=== PATIENT | male | born 1965 | race African-American/Black ===

== ENCOUNTER 2022-07-08 08:19 | Outpatient (CLI) | payer OTHER | END 2022-07-08 08:20 | disposition home or self-care (01) | LOC: CSHWCC 08:19 | PROVIDERS: ATTEND Preventive Medicine Undersea and Hyperbaric Medicine | DX: T81.89XD Other complications of procedures, not elsewhere classified, subsequent encounter (principal) | CPT/HCPCS: 97605; 99212; G0463 ==

== ENCOUNTER 2022-07-15 10:04 | Outpatient (CLI) | payer OTHER | END 2022-07-15 10:05 | disposition home or self-care (01) | LOC: CSHWCC 10:04 | PROVIDERS: ATTEND Nurse Practitioner Family | DX: E11.622 Type 2 diabetes mellitus with other skin ulcer (principal); L97.828 Non-pressure chronic ulcer of other part of left lower leg with other specified severity; Z89.412 Acquired absence of left great toe; Z89.422 Acquired absence of other left toe(s) | CPT/HCPCS: 97605 ==

== ENCOUNTER 2022-07-22 09:33 | Outpatient (CLI) | payer OTHER | END 2022-07-22 09:34 | disposition home or self-care (01) | LOC: CSHWCC 09:33 | PROVIDERS: ATTEND Preventive Medicine Undersea and Hyperbaric Medicine | DX: E11.622 Type 2 diabetes mellitus with other skin ulcer (principal); L97.828 Non-pressure chronic ulcer of other part of left lower leg with other specified severity ==

== ENCOUNTER 2022-07-26 09:55 | Outpatient (CLI) | payer OTHER | END 2022-07-26 09:56 | disposition home or self-care (01) | LOC: CSHWCC 09:55 | PROVIDERS: ATTEND Preventive Medicine Undersea and Hyperbaric Medicine | DX: E11.622 Type 2 diabetes mellitus with other skin ulcer (principal); L97.828 Non-pressure chronic ulcer of other part of left lower leg with other specified severity | CPT/HCPCS: 11042; 97605 ==

== ENCOUNTER 2022-08-05 09:08 | Outpatient (CLI) | payer OTHER | END 2022-08-05 09:09 | disposition home or self-care (01) | LOC: CSHWCC 09:08 | PROVIDERS: ATTEND Preventive Medicine Undersea and Hyperbaric Medicine | DX: L89.95 Pressure ulcer of unspecified site, unstageable (principal); E11.622 Type 2 diabetes mellitus with other skin ulcer; L97.828 Non-pressure chronic ulcer of other part of left lower leg with other specified severity | CPT/HCPCS: 99212; G0463 ==

== ENCOUNTER 2022-08-09 15:10 | Outpatient (CLI) | payer OTHER | END 2022-08-09 15:11 | disposition home or self-care (01) | LOC: CSHWCC 15:10 | PROVIDERS: ATTEND Preventive Medicine Undersea and Hyperbaric Medicine | DX: E11.622 Type 2 diabetes mellitus with other skin ulcer (principal); L97.828 Non-pressure chronic ulcer of other part of left lower leg with other specified severity; E11.621 Type 2 diabetes mellitus with foot ulcer; L97.529 Non-pressure chronic ulcer of other part of left foot with unspecified severity | CPT/HCPCS: 11042; 97605 ==

== ENCOUNTER 2022-08-12 10:42 | Outpatient (CLI) | payer OTHER | END 2022-08-12 10:43 | disposition home or self-care (01) | LOC: CSHWCC 10:42 | PROVIDERS: ATTEND Preventive Medicine Undersea and Hyperbaric Medicine | DX: E11.621 Type 2 diabetes mellitus with foot ulcer (principal); L97.529 Non-pressure chronic ulcer of other part of left foot with unspecified severity; Z89.432 Acquired absence of left foot | CPT/HCPCS: 97605 ==

== ENCOUNTER 2022-08-16 11:24 | Outpatient (CLI) | payer OTHER | END 2022-08-16 11:25 | disposition home or self-care (01) | LOC: CSHWCC 11:24 | PROVIDERS: ATTEND Preventive Medicine Undersea and Hyperbaric Medicine | DX: E11.621 Type 2 diabetes mellitus with foot ulcer (principal); L97.429 Non-pressure chronic ulcer of left heel and midfoot with unspecified severity; L97.529 Non-pressure chronic ulcer of other part of left foot with unspecified severity | CPT/HCPCS: 11042; 97605 ==

== ENCOUNTER 2022-08-19 10:11 | Outpatient (CLI) | payer OTHER | END 2022-08-19 10:12 | disposition home or self-care (01) | LOC: CSHWCC 10:11 | PROVIDERS: ATTEND Nurse Practitioner Family | DX: E11.621 Type 2 diabetes mellitus with foot ulcer (principal); L97.529 Non-pressure chronic ulcer of other part of left foot with unspecified severity; L97.429 Non-pressure chronic ulcer of left heel and midfoot with unspecified severity | CPT/HCPCS: 97605 ==

== ENCOUNTER 2022-08-23 14:05 | Outpatient (CLI) | payer OTHER | END 2022-08-23 14:06 | disposition home or self-care (01) | LOC: CSHWCC 14:05 | PROVIDERS: ATTEND Nurse Practitioner Family | DX: E11.621 Type 2 diabetes mellitus with foot ulcer (principal); L97.529 Non-pressure chronic ulcer of other part of left foot with unspecified severity; L97.429 Non-pressure chronic ulcer of left heel and midfoot with unspecified severity; Z89.432 Acquired absence of left foot ==

== ENCOUNTER 2022-08-26 08:58 | Outpatient (CLI) | payer OTHER | END 2022-08-26 08:59 | disposition home or self-care (01) | LOC: CSHWCC 08:58 | PROVIDERS: ATTEND Nurse Practitioner Family | DX: E11.621 Type 2 diabetes mellitus with foot ulcer (principal); L97.529 Non-pressure chronic ulcer of other part of left foot with unspecified severity; L97.429 Non-pressure chronic ulcer of left heel and midfoot with unspecified severity | CPT/HCPCS: 87070; 87077; 87186; 87205; 99213; G0463 ==

== ENCOUNTER 2022-09-02 10:41 | Outpatient (CLI) | payer OTHER | END 2022-09-02 10:42 | disposition home or self-care (01) | LOC: CSHWCC 10:41 | PROVIDERS: ATTEND Nurse Practitioner Family | DX: E11.621 Type 2 diabetes mellitus with foot ulcer (principal); L97.529 Non-pressure chronic ulcer of other part of left foot with unspecified severity; L97.429 Non-pressure chronic ulcer of left heel and midfoot with unspecified severity ==

== ENCOUNTER 2022-09-09 10:52 | Outpatient (CLI) | payer OTHER | END 2022-09-09 10:53 | disposition home or self-care (01) | LOC: CSHWCC 10:52 | PROVIDERS: ATTEND Nurse Practitioner Family | DX: E11.621 Type 2 diabetes mellitus with foot ulcer (principal); L97.529 Non-pressure chronic ulcer of other part of left foot with unspecified severity; L97.429 Non-pressure chronic ulcer of left heel and midfoot with unspecified severity | CPT/HCPCS: 97605 ==

== ENCOUNTER 2022-09-13 09:25 | Outpatient (CLI) | payer OTHER | END 2022-09-13 09:26 | disposition home or self-care (01) | LOC: CSHWCC 09:25 | PROVIDERS: ATTEND Nurse Practitioner Family | DX: E11.621 Type 2 diabetes mellitus with foot ulcer (principal); L97.529 Non-pressure chronic ulcer of other part of left foot with unspecified severity; L97.429 Non-pressure chronic ulcer of left heel and midfoot with unspecified severity | CPT/HCPCS: 99213; G0463 ==

== ENCOUNTER 2022-09-16 10:37 | Outpatient (CLI) | payer OTHER | END 2022-09-16 10:38 | disposition home or self-care (01) | LOC: CSHWCC 10:37 | PROVIDERS: ATTEND Nurse Practitioner Family | DX: E11.621 Type 2 diabetes mellitus with foot ulcer (principal); L97.529 Non-pressure chronic ulcer of other part of left foot with unspecified severity; L97.429 Non-pressure chronic ulcer of left heel and midfoot with unspecified severity | CPT/HCPCS: 99213; G0463 ==

== ENCOUNTER 2022-09-19 08:49 | Outpatient (CLI) | payer OTHER | END 2022-09-19 08:50 | disposition home or self-care (01) | LOC: CSHWCC 08:49 | PROVIDERS: ATTEND Nurse Practitioner Family | DX: E11.621 Type 2 diabetes mellitus with foot ulcer (principal); L97.529 Non-pressure chronic ulcer of other part of left foot with unspecified severity; L97.429 Non-pressure chronic ulcer of left heel and midfoot with unspecified severity | CPT/HCPCS: 99213; G0463 ==

== ENCOUNTER 2022-09-21 08:47 | Outpatient (CLI) | payer OTHER | END 2022-09-21 08:48 | disposition home or self-care (01) | LOC: CSHWCC 08:47 | PROVIDERS: ATTEND Nurse Practitioner Family | DX: E11.621 Type 2 diabetes mellitus with foot ulcer (principal); L97.529 Non-pressure chronic ulcer of other part of left foot with unspecified severity; L97.429 Non-pressure chronic ulcer of left heel and midfoot with unspecified severity ==

== ENCOUNTER 2022-09-26 11:08 | Outpatient (CLI) | payer OTHER | END 2022-09-26 11:09 | disposition home or self-care (01) | LOC: CSHWCC 11:08 | PROVIDERS: ATTEND Nurse Practitioner Family | DX: E11.621 Type 2 diabetes mellitus with foot ulcer (principal); L97.529 Non-pressure chronic ulcer of other part of left foot with unspecified severity; L97.429 Non-pressure chronic ulcer of left heel and midfoot with unspecified severity; Z89.432 Acquired absence of left foot | CPT/HCPCS: 97605 ==

== ENCOUNTER 2022-09-29 09:52 | Outpatient (CLI) | payer OTHER | END 2022-09-29 09:53 | disposition home or self-care (01) | LOC: CSHWCC 09:52 | PROVIDERS: ATTEND Nurse Practitioner Family | DX: T81.89XD Other complications of procedures, not elsewhere classified, subsequent encounter (principal); E11.621 Type 2 diabetes mellitus with foot ulcer; L97.529 Non-pressure chronic ulcer of other part of left foot with unspecified severity; L97.429 Non-pressure chronic ulcer of left heel and midfoot with unspecified severity | CPT/HCPCS: 11042; 97605 ==

== ENCOUNTER 2022-10-03 09:58 | Outpatient (CLI) | payer OTHER | END 2022-10-03 09:59 | disposition home or self-care (01) | LOC: CSHWCC 09:58 | PROVIDERS: ATTEND Nurse Practitioner Family | DX: E11.621 Type 2 diabetes mellitus with foot ulcer (principal); L97.529 Non-pressure chronic ulcer of other part of left foot with unspecified severity; L97.429 Non-pressure chronic ulcer of left heel and midfoot with unspecified severity; Z89.432 Acquired absence of left foot | CPT/HCPCS: 97605 ==

== ENCOUNTER 2022-10-06 09:13 | Outpatient (CLI) | payer OTHER | END 2022-10-06 09:14 | disposition home or self-care (01) | LOC: CSHWCC 09:13 | PROVIDERS: ATTEND Nurse Practitioner Family | DX: E11.621 Type 2 diabetes mellitus with foot ulcer (principal); L97.529 Non-pressure chronic ulcer of other part of left foot with unspecified severity; L97.429 Non-pressure chronic ulcer of left heel and midfoot with unspecified severity ==

== ENCOUNTER 2022-10-10 10:14 | Outpatient (CLI) | payer OTHER | END 2022-10-10 10:15 | disposition home or self-care (01) | LOC: CSHWCC 10:14 | PROVIDERS: ATTEND Nurse Practitioner Family | DX: E11.621 Type 2 diabetes mellitus with foot ulcer (principal); L97.529 Non-pressure chronic ulcer of other part of left foot with unspecified severity; L97.429 Non-pressure chronic ulcer of left heel and midfoot with unspecified severity; Z89.432 Acquired absence of left foot ==

== ENCOUNTER 2022-10-13 09:02 | Outpatient (CLI) | payer OTHER | END 2022-10-13 09:03 | disposition home or self-care (01) | LOC: CSHWCC 09:02 | PROVIDERS: ATTEND Nurse Practitioner Family | DX: E11.621 Type 2 diabetes mellitus with foot ulcer (principal); L97.429 Non-pressure chronic ulcer of left heel and midfoot with unspecified severity; L97.529 Non-pressure chronic ulcer of other part of left foot with unspecified severity ==

== ENCOUNTER 2022-10-17 12:24 | Inpatient (IN) | payer OTHER ==
[2022-10-17 13:32] LABS: #Basophils 0.1 10x3/uL (0.0-0.2); #Monocytes 1.1 10x3/uL (0.0-1.1); #Neutrophils 10.5 10x3/uL (1.5-8.4); %Basophils 0.5 % (0.0-2.0); %Eosinophils 0.2 % (0.0-6.0); %Neutrophils 79.8 % (40.0-75.0); Hemoglobin 10.1 g/dL (13.5-17.5); Mean Corpuscular HGB CONC 30.7 g/dL (32.0-36.0); Mean Corpuscular Hemoglobin 24.8 pg (27.0-33.0); Mean Corpuscular Volume 80.6 fl (81.2-95.1); Mean Platelet Volume 10.1 fl (7.4-10.4); Platelet Count 515 10x3/uL (150-450); RBC Distribution Width 18.1 % (11.5-14.5); Red Blood Cell (RBC) Count 4.08 10x6/uL (4.32-5.72); White Blood Cell (WBC) Count 13.1 10x3/uL (3.5-10.5)
[2022-10-17 13:54] LABS: ALT (SGPT) 19 U/L (8-55); AST (SGOT) 17 U/L (5-34); Albumin 3.9 g/dL (3.5-5.0); Alkaline Phosphatase 91 U/L (40-110); Anion Gap 17 mmol/L (10-20); BUN (Urea Nitrogen) 34 mg/dL (8.4-25.7); Bilirubin, Total 0.3 mg/dL (0.2-1.2); Calc. Creatinine Clearance 0 mL/min (70-130); Calcium 9.6 mg/dL (7.8-10.44); Carbon Dioxide 20 mmol/L (22-29); Chloride 101 mmol/L (98-107); Estimated GFR 56; Globulin 4.4 g/dL (2.4-3.5); Glucose 101 mg/dL (70-105); Potassium 5.1 mmol/L (3.5-5.1); Protein, Total 8.3 g/dL (6.0-8.3); Sodium 133 mmol/L (136-145)
[2022-10-17] MEDS ORDERED: metroNIDAZOLE 500 MG/100 ML BAG ONE ×2 (15:06→21:02)
[2022-10-17] MEDS ORDERED: Cefepime 2 GM VIAL ONE (15:06)
[2022-10-17] MEDS ORDERED: VANCOMYCIN 2 GRAM/400 ML BAG 2 GM in Premix Bag 1 BAG IVPB SCH (15:15)
[2022-10-17] MEDS ORDERED: Ondansetron ODT 4 MG TAB PO PRN (16:16)
[2022-10-17] MEDS ORDERED: Acetaminophen 650 MG Suppository PR PRN (16:16)
[2022-10-17] MEDS ORDERED: Ondansetron PF 4 MG/2 ML Vial IVP PRN (16:16)
[2022-10-17] MEDS ORDERED: Acetaminophen 325 MG TAB PO PRN (16:16)
[2022-10-17] MEDS ORDERED: Dextrose 50% Abboject 50 ML SYRINGE SLOW IVP PRN (16:21)
[2022-10-17] MEDS ORDERED: Dextrose 5% in Water 1,000 ML IV PRN (16:21)
[2022-10-17] MEDS ORDERED: HumaLOG 300 UNITS/3 ML VIAL SC PRN ×2 (16:21)
[2022-10-17] MEDS ORDERED: Vancomycin 1 GM in Premix Bag 1 BAG IVPB SCH (16:30)
[2022-10-17 18:06] VITALS: BMI 30.4
[2022-10-17] MEDS: Sodium Chloride 0.9% 1,000 ML IV SCH (18:28)
[2022-10-17] MEDS ORDERED: FLU VACC QS2022-23(6MOS UP)/PF 60 MCG/0.5 ML SYRINGE IM ONE (18:30)
[2022-10-17 18:52] LABS: SARS-CoV-2 NAA Rapid Test Not Detected (NotDetected)
[2022-10-17] MEDS ORDERED: Heparin 5,000 UNITS/ML VIAL ONE (21:02)
[2022-10-17] MEDS: Heparin 5,000 UNITS/ML VIAL SC SCH (21:31)
[2022-10-17] MEDS: metroNIDAZOLE 500 MG in Premix Bag 1 BAG IVPB SCH (21:32)
[2022-10-18] MEDS ORDERED: metroNIDAZOLE 500 MG/100 ML BAG ONE ×2 (03:40→09:33)
[2022-10-18] MEDS: metroNIDAZOLE 500 MG in Premix Bag 1 BAG IVPB SCH ×3 (03:46→16:30)
[2022-10-18 04:12] LABS: #Basophils 0.1 10x3/uL (0.0-0.2); #Eosinphils 0.1 10x3/uL (0.0-0.5); #Monocytes 0.9 10x3/uL (0.0-1.1); #Neutrophils 8.8 10x3/uL (1.5-8.4); %Basophils 0.4 % (0.0-2.0); %Eosinophils 0.7 % (0.0-6.0); %Lymphocytes 11.9 % (18.0-47.0); %Monocytes 8.3 % (0.0-10.0); %Neutrophils 78.3 % (40.0-75.0); Mean Corpuscular HGB CONC 30.6 g/dL (32.0-36.0); Mean Corpuscular Hemoglobin 24.9 pg (27.0-33.0); Mean Corpuscular Volume 81.2 fl (81.2-95.1); Mean Platelet Volume 9.7 fl (7.4-10.4); Platelet Count 461 10x3/uL (150-450); RBC Distribution Width 17.7 % (11.5-14.5); Red Blood Cell (RBC) Count 3.62 10x6/uL (4.32-5.72); White Blood Cell (WBC) Count 11.3 10x3/uL (3.5-10.5)
[2022-10-18 04:18] LABS: Anion Gap 16 mmol/L (10-20); BUN (Urea Nitrogen) 23 mg/dL (8.4-25.7); Calc. Creatinine Clearance 107 mL/min (70-130); Calcium 9.3 mg/dL (7.8-10.44); Carbon Dioxide 18 mmol/L (22-29); Chloride 106 mmol/L (98-107); Estimated GFR 92; Glucose 133 mg/dL (70-105); Potassium 4.6 mmol/L (3.5-5.1); Sodium 135 mmol/L (136-145)
[2022-10-18] MEDS ORDERED: Cefepime 2 GM in Sodium Chloride 0.9% 100 ML IVPB SCH (06:00)
[2022-10-18] MEDS ORDERED: Cefepime 2 GM VIAL ONE (06:20)
[2022-10-18] MEDS ORDERED: VANCOMYCIN 1.25 GM/250 ML BAG 1.25 GM in Premix Bag 1 BAG IVPB SCH (06:30)
[2022-10-18] MEDS: Sodium Chloride 0.9% 1,000 ML IV SCH (06:31)
[2022-10-18] MEDS ORDERED: Aspirin 81 mg Enteric Coated Tablet PO SCH (09:00)
[2022-10-18] MEDS ORDERED: Aspirin Chewable 81 MG TAB ONE (09:32)
[2022-10-18] MEDS ORDERED: Heparin 5,000 UNITS/ML VIAL ONE (09:33)
[2022-10-18] MEDS: Heparin 5,000 UNITS/ML VIAL SC SCH (09:34)
[2022-10-18] MEDS ORDERED: Magnevist 469MG/ML 20 ML VIAL ONE (13:50)
[2022-10-18 17:36] VITALS: BP 127/61; TEMP 98.3
== END 2022-10-18 17:47 | disposition short-term general hospital (02) | DRG 638 ==
LOC: CSHERS 12:24 → CSHERHOLD 17:50 → CSHTELE 10-18 11:18
PROVIDERS: ADMIT Internal Medicine; ATTEND Family Medicine
DX: E11.69 Type 2 diabetes mellitus with other specified complication (principal); I13.0 Hypertensive heart and chronic kidney disease with heart failure and stage 1 through stage 4 chronic kidney disease, or unspecified chronic kidney disease; I50.32 Chronic diastolic (congestive) heart failure; M86.8X7 Other osteomyelitis, ankle and foot; E11.621 Type 2 diabetes mellitus with foot ulcer; N17.9 Acute kidney failure, unspecified; E78.5 Hyperlipidemia, unspecified; I25.10 Atherosclerotic heart disease of native coronary artery without angina pectoris; E11.51 Type 2 diabetes mellitus with diabetic peripheral angiopathy without gangrene; E11.40 Type 2 diabetes mellitus with diabetic neuropathy, unspecified; E78.00 Pure hypercholesterolemia, unspecified; N18.2 Chronic kidney disease, stage 2 (mild); E11.22 Type 2 diabetes mellitus with diabetic chronic kidney disease; M10.9 Gout, unspecified; Z20.822 Contact with and (suspected) exposure to COVID-19; L97.529 Non-pressure chronic ulcer of other part of left foot with unspecified severity; N18.30 Chronic kidney disease, stage 3 unspecified; Z79.4 Long term (current) use of insulin; Z79.82 Long term (current) use of aspirin; Z79.84 Long term (current) use of oral hypoglycemic drugs; Z89.511 Acquired absence of right leg below knee; Z79.899 Other long term (current) drug therapy; I25.2 Old myocardial infarction
CPT/HCPCS: 36415; 36416; 80048; 80053; 83605; 85025; 86140; 87040; 87070; 87077; 87205; 96374; 96375; 97139; A9579; J0692; J1644; J3370; J3490; J7030; J7050; U0002

== ENCOUNTER 2022-10-27 09:52 | Outpatient (CLI) | payer OTHER | END 2022-10-27 09:53 | disposition home or self-care (01) | LOC: CSHWCC 09:52 | PROVIDERS: ATTEND Nurse Practitioner Family | DX: E11.621 Type 2 diabetes mellitus with foot ulcer (principal); L97.529 Non-pressure chronic ulcer of other part of left foot with unspecified severity; L97.429 Non-pressure chronic ulcer of left heel and midfoot with unspecified severity ==

== ENCOUNTER 2022-11-01 11:18 | Outpatient (CLI) | payer OTHER | END 2022-11-01 11:19 | disposition home or self-care (01) | LOC: CSHWCC 11:18 | PROVIDERS: ATTEND Nurse Practitioner Family | DX: T81.89XD Other complications of procedures, not elsewhere classified, subsequent encounter (principal) | CPT/HCPCS: 97605 ==

== ENCOUNTER 2022-11-08 15:04 | Outpatient (CLI) | payer OTHER | END 2022-11-08 15:05 | disposition home or self-care (01) | LOC: CSHWCC 15:04 | PROVIDERS: ATTEND Nurse Practitioner Family | DX: T81.89XD Other complications of procedures, not elsewhere classified, subsequent encounter (principal) | CPT/HCPCS: 99212; G0463 ==

== ENCOUNTER 2022-11-11 10:10 | Outpatient (CLI) | payer OTHER | END 2022-11-11 10:11 | disposition home or self-care (01) | LOC: CSHWCC 10:10 | PROVIDERS: ATTEND Nurse Practitioner Family | DX: T81.89XD Other complications of procedures, not elsewhere classified, subsequent encounter (principal) | CPT/HCPCS: 97605; 99212; G0463 ==

== ENCOUNTER 2022-11-15 10:41 | Outpatient (CLI) | payer OTHER | END 2022-11-15 10:42 | disposition home or self-care (01) | LOC: CSHWCC 10:41 | PROVIDERS: ATTEND Nurse Practitioner Family | DX: T81.89XD Other complications of procedures, not elsewhere classified, subsequent encounter (principal) | CPT/HCPCS: 11042; 97605; 99212; G0463 ==

== ENCOUNTER 2022-11-18 11:10 | Outpatient (CLI) | payer OTHER | END 2022-11-18 11:11 | disposition home or self-care (01) | LOC: CSHWCC 11:10 | PROVIDERS: ATTEND Nurse Practitioner Family | DX: T81.89XD Other complications of procedures, not elsewhere classified, subsequent encounter (principal) | CPT/HCPCS: 97605 ==

== ENCOUNTER 2022-11-22 12:59 | Outpatient (CLI) | payer OTHER | END 2022-11-22 13:00 | disposition home or self-care (01) | LOC: CSHWCC 12:59 | PROVIDERS: ATTEND Nurse Practitioner Family | DX: T81.89XD Other complications of procedures, not elsewhere classified, subsequent encounter (principal) | CPT/HCPCS: 97605 ==

== ENCOUNTER 2022-12-12 12:58 | Outpatient (CLI) | payer OTHER | END 2022-12-12 12:59 | disposition home or self-care (01) | LOC: CSHWCC 12:58 | PROVIDERS: ATTEND Nurse Practitioner Family | DX: T81.89XD Other complications of procedures, not elsewhere classified, subsequent encounter (principal) | CPT/HCPCS: 87070; 87077; 87205; 97605 ==

== ENCOUNTER 2022-12-15 10:33 | Outpatient (CLI) | payer OTHER | END 2022-12-15 10:34 | disposition home or self-care (01) | LOC: CSHWCC 10:33 | PROVIDERS: ATTEND Nurse Practitioner Family | DX: T81.89XD Other complications of procedures, not elsewhere classified, subsequent encounter (principal) ==

== ENCOUNTER 2022-12-20 03:06 | Inpatient (IN) | payer OTHER ==
[2022-12-20] MEDS ORDERED: Communication Order-Pharmacy FS ONE (04:01)
[2022-12-20] MEDS ORDERED: INSULIN REGULAR IN 0.9 % NACL 100 UNIT in Premix Bag 1 BAG IVPB SCH (04:15)
[2022-12-20] MEDS ORDERED: NOREPINEPHRINE 8 MG/250 ML-D5W 250 ML IVPB SCH (04:15)
[2022-12-20] MEDS ORDERED: Diltiazem 125 MG in Sodium Chloride 0.9% 100 ML IVPB SCH (04:15)
[2022-12-20] MEDS ORDERED: Dextrose 50% Abboject 50 ML SYRINGE SLOW IVP PRN ×2 (04:15→10:16)
[2022-12-20] MEDS ORDERED: D5 1/2 NS w/20 mEq KCL 1,000 ML IV PRN (04:15)
[2022-12-20] MEDS ORDERED: Sodium Chloride 0.9% 1,000 ML IV PRN (04:15)
[2022-12-20] MEDS ORDERED: NS 0.9% w/ 20 MEQ KCL 1,000 ML IV PRN (04:15)
[2022-12-20] MEDS ORDERED: Dextrose 5 %-0.45 % NaCl 1,000 ML IV PRN (04:15)
[2022-12-20] MEDS ORDERED: Electrolyte Replacement Protocol IVPB SCH (04:15)
[2022-12-20] MEDS ORDERED: Piperacillin/Tazobactam 3.375 GM in Sodium Chloride 0.9% 100 ML IVPB SCH (04:30)
[2022-12-20 04:52] LABS: Bilirubin Neg (Negative); Blood, Urine Negative (Negative); Clarity Clear (Clear); Glucose, Urine (Dipstick) >=1000 mg/dL (Negative); Ketone, Urine 50 mg/dL (Negative); Leukocyte Negative (Negative); Nitrite Negative (Negative); Protein, Urine (Dipstick) 15 mg/dl (Neg-Trace); Urobilinogen Normal mg/dL (Less than 2)
[2022-12-20 04:58] LABS: Bacteria/HPF Rare-Few HPF (None Seen); RBC/HPF 0-3 HPF (0-3); Squamous Epithelial 0-3 HPF (0-3); WBC/HPF 0-3 HPF (0-3)
[2022-12-20 05:01] LABS: Amphetamine Not Detected (NotDetected); Barbiturates Screen Not Detected (NotDetected); Benzodiazepine Screen Not Detected (NotDetected); Cocaine Metabolite Screen Not Detected (NotDetected); Methadone Not Detected (NotDetected); Methamphetamine Not Detected (NotDetected); Opiate Screen Not Detected (NotDetected); Oxycodone Screen Not Detected (NotDetected); Phencyclidine (PCP) Not Detected (NotDetected); THC/Cannabinoid Screen Not Detected (NotDetected); Tricyclic Screen Not Detected (NotDetected)
[2022-12-20 05:16] LABS: Hemoglobin 8.4 g/dL (13.5-17.5); Mean Corpuscular HGB CONC 31.3 g/dL (32.0-36.0); Mean Corpuscular Volume 73.4 fl (81.2-95.1); Mean Platelet Volume 10.4 fl (7.4-10.4); Platelet Count 498 10x3/uL (150-450); Red Blood Cell (RBC) Count 3.65 10x6/uL (4.32-5.72); White Blood Cell (WBC) Count 10.8 10x3/uL (3.5-10.5)
[2022-12-20 05:17] LABS: MDiff Complete? YES
[2022-12-20 05:24] LABS: Phosphorus 2.6 mg/dL (2.3-4.7)
[2022-12-20 05:26] LABS: Anion Gap 19 mmol/L (10-20); BUN (Urea Nitrogen) 29 mg/dL (8.4-25.7); Calc. Creatinine Clearance 101 mL/min (70-130); Calcium 10.5 mg/dL (7.8-10.44); Carbon Dioxide 18 mmol/L (22-29); Chloride 117 mmol/L (98-107); Estimated GFR 85; Glucose 262 mg/dL (70-105); Magnesium 2.1 mg/dL (1.6-2.6); Potassium 4.7 mmol/L (3.5-5.1); Sodium 149 mmol/L (136-145)
[2022-12-20 05:33] LABS: Troponin I 0.064 ng/mL (< 0.028)
[2022-12-20 05:44] LABS: Anisocytosis SLIGHT = 6-15 cells (100X) (0-5/hpf); Hypochromia SLIGHT = 6-15 cells (100X) (0-5/hpf); Lymphocytes 7 % (21-51); Metamyelocyte 2 % (0-0); Microcytosis SLIGHT = 6-15 cells (100X) (0-5/hpf); Monocytes 9 % (0-10); Neutrophil 81 % (42-75); Nucleated RBC 1 % (0); Polychromasia SLIGHT = 2-3 cells (100X) (0-2/hpf); Reactive Lymphocytes 1 % (0-10); Target Cells SLIGHT = 2-5 cells (100X) (0-1/hpf)
[2022-12-20 05:45] LABS: Platelet Morphology Comment Appears Increased
[2022-12-20] MEDS: Pantoprazole 40 MG VIAL IVP SCH (08:59)
[2022-12-20] MEDS ORDERED: FLU VACC QS2022-23(6MOS UP)/PF 60 MCG/0.5 ML SYRINGE IM ONE (09:00)
[2022-12-20 09:03] LABS: Anion Gap 15 mmol/L (10-20); BUN (Urea Nitrogen) 28 mg/dL (8.4-25.7); Calc. Creatinine Clearance 100 mL/min (70-130); Calcium 10.4 mg/dL (7.8-10.44); Carbon Dioxide 21 mmol/L (22-29); Chloride 120 mmol/L (98-107); Estimated GFR 84; Glucose 216 mg/dL (70-105); Potassium 4.5 mmol/L (3.5-5.1)
[2022-12-20 09:06] LABS: Sodium 151 mmol/L (136-145)
[2022-12-20] MEDS ORDERED: Dextrose 5 %-0.45 % NaCl 1,000 ML IV SCH (10:15)
[2022-12-20] MEDS ORDERED: Dextrose 5% in Water 1,000 ML IV PRN (10:16)
[2022-12-20] MEDS: VANCOMYCIN 1.25 GM/250 ML BAG 1.25 GM in Premix Bag 1 BAG IVPB SCH ×2 (10:57→23:15)
[2022-12-20] MEDS: Piperacillin/Tazobactam 3.375 GM in Sodium Chloride 0.9% 100 ML IVPB SCH ×2 (12:29→20:21)
[2022-12-20] MEDS: Acetaminophen 650 MG Suppository PR PRN ×3 (13:07→23:36)
[2022-12-20 16:46] LABS: Anion Gap 15 mmol/L (10-20); BUN (Urea Nitrogen) 25 mg/dL (8.4-25.7); Calc. Creatinine Clearance 122 mL/min (70-130); Calcium 10.1 mg/dL (7.8-10.44); Carbon Dioxide 21 mmol/L (22-29); Chloride 121 mmol/L (98-107); Estimated GFR 100; Glucose 213 mg/dL (70-105); Potassium 4.7 mmol/L (3.5-5.1)
[2022-12-20 16:52] LABS: Sodium 152 mmol/L (136-145)
[2022-12-20] MEDS ORDERED: Dextrose 5% in Water 1,000 ML IV SCH (18:00)
[2022-12-20] MEDS: HumaLOG 300 UNITS/3 ML VIAL SC PRN ×2 (18:28→23:26)
[2022-12-20] MEDS: Atorvastatin Calcium 10 MG TAB PO SCH ×3 (20:20→20:40)
[2022-12-20] MEDS: Lantus 1000 UNITS/10 ML VIAL SC SCH (20:23)
[2022-12-20 21:40] LABS: SARS-CoV-2 NAA Rapid Test Not Detected (NotDetected)
[2022-12-20 21:40] LABS: Anion Gap 14 mmol/L (10-20); BUN (Urea Nitrogen) 24 mg/dL (8.4-25.7); Calc. Creatinine Clearance 116 mL/min (70-130); Calcium 10.3 mg/dL (7.8-10.44); Carbon Dioxide 22 mmol/L (22-29); Chloride 120 mmol/L (98-107); Estimated GFR 99; Glucose 212 mg/dL (70-105); Potassium 4.4 mmol/L (3.5-5.1)
[2022-12-20 21:42] LABS: Sodium 152 mmol/L (136-145)
[2022-12-20] MEDS: Dextrose 5% in Water 1,000 ML IV SCH (23:17)
[2022-12-21] MEDS: Piperacillin/Tazobactam 3.375 GM in Sodium Chloride 0.9% 100 ML IVPB SCH ×3 (03:55→20:15)
[2022-12-21] MEDS: Dextrose 5% in Water 1,000 ML IV SCH (03:56)
[2022-12-21 04:26] LABS: Anion Gap 18 mmol/L (10-20); BUN (Urea Nitrogen) 22 mg/dL (8.4-25.7); Calc. Creatinine Clearance 118 mL/min (70-130); Calcium 10.3 mg/dL (7.8-10.44); Carbon Dioxide 19 mmol/L (22-29); Chloride 114 mmol/L (98-107); Estimated GFR 99; Glucose 235 mg/dL (70-105); Sodium 146 mmol/L (136-145)
[2022-12-21] MEDS: HumaLOG 300 UNITS/3 ML VIAL SC PRN ×4 (05:26→20:18)
[2022-12-21] MEDS: Lantus 1000 UNITS/10 ML VIAL SC SCH ×2 (08:07→20:35)
[2022-12-21] MEDS: Pantoprazole 40 MG VIAL IVP SCH (08:09)
[2022-12-21] MEDS: Aspirin 81 mg Enteric Coated Tablet PO SCH (08:09)
[2022-12-21] MEDS ORDERED: Sodium Bicarbonate 75 MEQ in Sterile Water Injection 1,000 ML IV SCH (09:30)
[2022-12-21 10:43] LABS: Vancomycin, Trough 13.6 ug/mL
[2022-12-21] MEDS: VANCOMYCIN 1.25 GM/250 ML BAG 1.25 GM in Premix Bag 1 BAG IVPB SCH (11:16)
[2022-12-21 16:34] LABS: Albumin 2.5 g/dL (3.5-5.0); Anion Gap 13 mmol/L (10-20); BUN (Urea Nitrogen) 19 mg/dL (8.4-25.7); BUN/Creatinine Ratio 22.09; Calc. Creatinine Clearance 120 mL/min (70-130); Calcium 9.6 mg/dL (7.8-10.44); Carbon Dioxide 24 mmol/L (22-29); Chloride 109 mmol/L (98-107); Estimated GFR 100; Glucose 233 mg/dL (70-105); Phosphorus 2.5 mg/dL (2.3-4.7); Potassium 3.9 mmol/L (3.5-5.1); Sodium 142 mmol/L (136-145)
[2022-12-21] MEDS: Atorvastatin Calcium 10 MG TAB PO SCH (20:16)
[2022-12-21] MEDS: traMADol HCl 50 MG TAB PO PRN (22:58)
[2022-12-22] MEDS: VANCOMYCIN 1.25 GM/250 ML BAG 1.25 GM in Premix Bag 1 BAG IVPB SCH ×3 (00:45→23:31)
[2022-12-22 04:02] LABS: Anion Gap 12 mmol/L (10-20); BUN (Urea Nitrogen) 18 mg/dL (8.4-25.7); Calc. Creatinine Clearance 133 mL/min (70-130); Calcium 9.2 mg/dL (7.8-10.44); Carbon Dioxide 24 mmol/L (22-29); Chloride 106 mmol/L (98-107); Estimated GFR 103; Glucose 167 mg/dL (70-105); Potassium 3.8 mmol/L (3.5-5.1); Sodium 138 mmol/L (136-145)
[2022-12-22] MEDS: Piperacillin/Tazobactam 3.375 GM in Sodium Chloride 0.9% 100 ML IVPB SCH ×3 (05:10→20:25)
[2022-12-22] MEDS: Aspirin 81 mg Enteric Coated Tablet PO SCH (08:41)
[2022-12-22] MEDS: Pantoprazole 40 MG VIAL IVP SCH (08:42)
[2022-12-22] MEDS: Lantus 1000 UNITS/10 ML VIAL SC SCH ×2 (08:42→20:26)
[2022-12-22] MEDS ORDERED: Lidocaine 1% PF 5 ML VIAL ONE (10:10)
[2022-12-22] MEDS ORDERED: Sodium Bicarbonate 2.5 MEQ/5 ML VIAL ONE (10:11)
[2022-12-22 23:18] LABS: Vancomycin, Trough 13.9 ug/mL
[2022-12-23] MEDS: traMADol HCl 50 MG TAB PO PRN ×2 (01:01→11:06)
[2022-12-23 04:50] LABS: Anion Gap 11 mmol/L (10-20); BUN (Urea Nitrogen) 13 mg/dL (8.4-25.7); Calc. Creatinine Clearance 133 mL/min (70-130); Calcium 8.7 mg/dL (7.8-10.44); Carbon Dioxide 25 mmol/L (22-29); Chloride 102 mmol/L (98-107); Estimated GFR 103; Glucose 161 mg/dL (70-105); Potassium 3.6 mmol/L (3.5-5.1); Sodium 134 mmol/L (136-145)
[2022-12-23] MEDS: Piperacillin/Tazobactam 3.375 GM in Sodium Chloride 0.9% 100 ML IVPB SCH ×3 (05:04→20:50)
[2022-12-23 08:20] LABS: Iron 26 ug/dL (65-175); Iron Binding Capacity, Total 94 mcg/dL (261-462)
[2022-12-23] MEDS: VANCOMYCIN 1.25 GM/250 ML BAG 1.25 GM in Premix Bag 1 BAG IVPB SCH ×2 (11:07→22:50)
[2022-12-23] MEDS: Aspirin 81 mg Enteric Coated Tablet PO SCH (11:07)
[2022-12-23] MEDS: Lantus 1000 UNITS/10 ML VIAL SC SCH ×2 (11:08→20:52)
[2022-12-23] MEDS: HumaLOG 300 UNITS/3 ML VIAL SC PRN (17:01)
[2022-12-23] MEDS: Atorvastatin Calcium 10 MG TAB PO SCH (20:51)
[2022-12-24] MEDS: traMADol HCl 50 MG TAB PO PRN ×3 (03:54→20:23)
[2022-12-24] MEDS: Piperacillin/Tazobactam 3.375 GM in Sodium Chloride 0.9% 100 ML IVPB SCH ×3 (03:58→20:22)
[2022-12-24 05:55] LABS: Anion Gap 12 mmol/L (10-20); BUN (Urea Nitrogen) 10 mg/dL (8.4-25.7); Calc. Creatinine Clearance 136 mL/min (70-130); Calcium 8.4 mg/dL (7.8-10.44); Carbon Dioxide 24 mmol/L (22-29); Chloride 102 mmol/L (98-107); Estimated GFR 104; Glucose 148 mg/dL (70-105); Potassium 3.5 mmol/L (3.5-5.1); Sodium 134 mmol/L (136-145)
[2022-12-24 06:04] LABS: Hemoglobin 7.8 g/dL (13.5-17.5); Mean Corpuscular HGB CONC 31.7 g/dL (32.0-36.0); Mean Corpuscular Hemoglobin 23.5 pg (27.0-33.0); Mean Corpuscular Volume 74.1 fl (81.2-95.1); Mean Platelet Volume 11.4 fl (7.4-10.4); Platelet Count 415 10x3/uL (150-450); RBC Distribution Width 18.9 % (11.5-14.5); Red Blood Cell (RBC) Count 3.32 10x6/uL (4.32-5.72); White Blood Cell (WBC) Count 20.8 10x3/uL (3.5-10.5)
[2022-12-24 06:35] LABS: MDiff Complete? YES
[2022-12-24 07:14] LABS: Band 1 % (5-11); Lymphocytes 2 % (21-51); Monocytes 7 % (0-10); Neutrophil 90 % (42-75)
[2022-12-24 07:15] LABS: Hypochromia SLIGHT = 6-15 cells (100X) (0-5/hpf); Microcytosis SLIGHT = 6-15 cells (100X) (0-5/hpf); Schistocytes SLIGHT = 2-5 cells (100X) (0-1/hpf); Target Cells SLIGHT = 2-5 cells (100X) (0-1/hpf)
[2022-12-24 07:16] LABS: Platelet Morphology Comment Appears Adequate
[2022-12-24] MEDS ORDERED: Potassium Chloride 20 MEQ TAB PO SCH (08:00)
[2022-12-24] MEDS: Lantus 1000 UNITS/10 ML VIAL SC SCH ×2 (08:41→20:23)
[2022-12-24] MEDS: Aspirin 81 mg Enteric Coated Tablet PO SCH (08:42)
[2022-12-24] MEDS: Sodium Chloride 0.9% 1,000 ML IV SCH ×2 (08:43→20:31)
[2022-12-24] MEDS ORDERED: Piperacillin/Tazobactam 3.375 GM VIAL ONE (11:33)
[2022-12-24] MEDS: HumaLOG 300 UNITS/3 ML VIAL SC PRN (11:36)
[2022-12-24] MEDS: VANCOMYCIN 1.25 GM/250 ML BAG 1.25 GM in Premix Bag 1 BAG IVPB SCH ×2 (11:36→22:51)
[2022-12-24] MEDS: Atorvastatin Calcium 10 MG TAB PO SCH (20:22)
[2022-12-24] MEDS: Acetaminophen 325 MG TAB PO PRN (23:16)
[2022-12-25] MEDS: Piperacillin/Tazobactam 3.375 GM in Sodium Chloride 0.9% 100 ML IVPB SCH ×3 (04:39→20:46)
[2022-12-25] MEDS: traMADol HCl 50 MG TAB PO PRN ×2 (04:52→08:32)
[2022-12-25] MEDS: HumaLOG 300 UNITS/3 ML VIAL SC PRN ×3 (04:56→20:56)
[2022-12-25 05:21] LABS: Anion Gap 13 mmol/L (10-20); BUN (Urea Nitrogen) 9 mg/dL (8.4-25.7); Calc. Creatinine Clearance 130 mL/min (70-130); Calcium 8.3 mg/dL (7.8-10.44); Carbon Dioxide 22 mmol/L (22-29); Chloride 104 mmol/L (98-107); Estimated GFR 102; Glucose 175 mg/dL (70-105); Potassium 3.5 mmol/L (3.5-5.1); Sodium 135 mmol/L (136-145)
[2022-12-25] MEDS ORDERED: Potassium Chloride 20 MEQ TAB PO SCH (08:00)
[2022-12-25] MEDS: Aspirin 81 mg Enteric Coated Tablet PO SCH (08:32)
[2022-12-25] MEDS: Lantus 1000 UNITS/10 ML VIAL SC SCH ×2 (08:32→20:54)
[2022-12-25] MEDS: VANCOMYCIN 1.25 GM/250 ML BAG 1.25 GM in Premix Bag 1 BAG IVPB SCH ×2 (10:05→23:43)
[2022-12-25] MEDS: Sodium Chloride 0.9% 1,000 ML IV SCH (10:06)
[2022-12-25] MEDS: Atorvastatin Calcium 10 MG TAB PO SCH (20:47)
[2022-12-25 23:21] LABS: Vancomycin, Trough 13.8 ug/mL
[2022-12-26] MEDS: Sodium Chloride 0.9% 1,000 ML IV SCH ×2 (04:11→15:17)
[2022-12-26] MEDS: Piperacillin/Tazobactam 3.375 GM in Sodium Chloride 0.9% 100 ML IVPB SCH ×3 (05:30→20:13)
[2022-12-26 05:38] LABS: Anion Gap 15 mmol/L (10-20); BUN (Urea Nitrogen) 8 mg/dL (8.4-25.7); Calc. Creatinine Clearance 137 mL/min (70-130); Calcium 8.6 mg/dL (7.8-10.44); Carbon Dioxide 23 mmol/L (22-29); Chloride 102 mmol/L (98-107); Estimated GFR 104; Glucose 131 mg/dL (70-105); Potassium 3.8 mmol/L (3.5-5.1); Sodium 136 mmol/L (136-145)
[2022-12-26] MEDS: traMADol HCl 50 MG TAB PO PRN ×3 (08:26→23:22)
[2022-12-26] MEDS: Aspirin 81 mg Enteric Coated Tablet PO SCH (08:28)
[2022-12-26] MEDS: Lantus 1000 UNITS/10 ML VIAL SC SCH ×2 (08:28→20:13)
[2022-12-26] MEDS: VANCOMYCIN 1.25 GM/250 ML BAG 1.25 GM in Premix Bag 1 BAG IVPB SCH ×2 (10:43→23:09)
[2022-12-26] MEDS ORDERED: Famotidine/PF 20 mg/2ml Vial ONE (11:50)
[2022-12-26] MEDS ORDERED: PHENYLEPHRINE-NS 100 MCG/ML 10 ML SYRINGE ONE (12:44)
[2022-12-26] MEDS ORDERED: Lidocaine 1% PF 5 ML VIAL ONE (12:44)
[2022-12-26] MEDS ORDERED: Fentanyl 100 MCG/2 ML VIAL ONE (12:45)
[2022-12-26] MEDS ORDERED: Dexamethasone 4 mg/ml Vial ONE (13:14)
[2022-12-26] MEDS ORDERED: Ondansetron PF 4 MG/2 ML Vial ONE (13:14)
[2022-12-26] MEDS: Morphine 2 MG/ML VIAL SLOW IVP PRN (16:57)
[2022-12-26] MEDS: Morphine 4 MG/ML VIAL SLOW IVP PRN ×2 (18:26→23:36)
[2022-12-26] MEDS: Atorvastatin Calcium 10 MG TAB PO SCH (20:13)
[2022-12-26] MEDS: Apixaban 5 MG TAB PO SCH (20:14)
[2022-12-27] MEDS: Morphine 4 MG/ML VIAL SLOW IVP PRN ×4 (01:31→20:43)
[2022-12-27] MEDS: Piperacillin/Tazobactam 3.375 GM in Sodium Chloride 0.9% 100 ML IVPB SCH ×3 (03:52→20:44)
[2022-12-27] MEDS: Sodium Chloride 0.9% 1,000 ML IV SCH ×2 (05:36→21:25)
[2022-12-27 05:39] LABS: Mean Corpuscular HGB CONC 29.9 g/dL (32.0-36.0); Mean Corpuscular Hemoglobin 23.1 pg (27.0-33.0); Mean Corpuscular Volume 77.2 fl (81.2-95.1); Mean Platelet Volume 11.8 fl (7.4-10.4); Platelet Count 443 10x3/uL (150-450); RBC Distribution Width 19.7 % (11.5-14.5); Red Blood Cell (RBC) Count 3.03 10x6/uL (4.32-5.72); White Blood Cell (WBC) Count 23.5 10x3/uL (3.5-10.5)
[2022-12-27] MEDS: HumaLOG 300 UNITS/3 ML VIAL SC PRN (05:40)
[2022-12-27 05:47] LABS: Anion Gap 15 mmol/L (10-20); BUN (Urea Nitrogen) 10 mg/dL (8.4-25.7); Calc. Creatinine Clearance 130 mL/min (70-130); Carbon Dioxide 21 mmol/L (22-29); Chloride 104 mmol/L (98-107); Estimated GFR 102; Glucose 207 mg/dL (70-105); Potassium 4.2 mmol/L (3.5-5.1); Sodium 136 mmol/L (136-145)
[2022-12-27 06:31] LABS: MDiff Complete? YES
[2022-12-27 06:40] LABS: Band 6 % (5-11); Lymphocytes 2 % (21-51); Monocytes 6 % (0-10); Neutrophil 86 % (42-75)
[2022-12-27 06:41] LABS: Anisocytosis SLIGHT = 6-15 cells (100X) (0-5/hpf); Hypochromia MODERATE=16-30 cells (100X) (0-5/hpf)
[2022-12-27 06:42] LABS: Ovalocytes SLIGHT = 2-5 cells (100X) (0-1/hpf); Tear Drops SLIGHT = 2-5 cells (100X) (0-1/hpf)
[2022-12-27 06:49] LABS: Platelet Morphology Comment Appears Decreased
[2022-12-27] MEDS: Aspirin 81 mg Enteric Coated Tablet PO SCH (08:36)
[2022-12-27] MEDS: Apixaban 5 MG TAB PO SCH ×2 (08:37→20:45)
[2022-12-27] MEDS: Lantus 1000 UNITS/10 ML VIAL SC SCH ×2 (08:38→20:46)
[2022-12-27] MEDS: Morphine 2 MG/ML VIAL SLOW IVP PRN (09:32)
[2022-12-27] MEDS: VANCOMYCIN 1.25 GM/250 ML BAG 1.25 GM in Premix Bag 1 BAG IVPB SCH (11:26)
[2022-12-27] MEDS: traMADol HCl 50 MG TAB PO PRN (13:41)
[2022-12-27] MEDS: Atorvastatin Calcium 10 MG TAB PO SCH (20:45)
[2022-12-28] MEDS: VANCOMYCIN 1.25 GM/250 ML BAG 1.25 GM in Premix Bag 1 BAG IVPB SCH ×3 (02:39→22:14)
[2022-12-28] MEDS: Ondansetron PF 4 MG/2 ML Vial IVP PRN ×2 (02:46→10:49)
[2022-12-28 04:22] LABS: #Eosinphils 0.1 10x3/uL (0.0-0.5); #Monocytes 1.4 10x3/uL (0.0-1.1); #Neutrophils 12.9 10x3/uL (1.5-8.4); %Basophils 0.2 % (0.0-2.0); %Eosinophils 0.5 % (0.0-6.0); %Lymphocytes 7.7 % (18.0-47.0); %Monocytes 8.9 % (0.0-10.0); %Neutrophils 81.2 % (40.0-75.0); Hemoglobin 6.9 g/dL (13.5-17.5); Mean Corpuscular HGB CONC 29.9 g/dL (32.0-36.0); Mean Corpuscular Hemoglobin 23.1 pg (27.0-33.0); Mean Corpuscular Volume 77.3 fl (81.2-95.1); Platelet Count 459 10x3/uL (150-450); RBC Distribution Width 19.9 % (11.5-14.5); Red Blood Cell (RBC) Count 2.99 10x6/uL (4.32-5.72); White Blood Cell (WBC) Count 15.8 10x3/uL (3.5-10.5)
[2022-12-28] MEDS ORDERED: Promethazine HCl 12.5 MG in Sodium Chloride 0.9% 50 ML IVPB SCH (04:30)
[2022-12-28 04:32] LABS: Anion Gap 14 mmol/L (10-20); BUN (Urea Nitrogen) 9 mg/dL (8.4-25.7); Calc. Creatinine Clearance 146 mL/min (70-130); Calcium 7.9 mg/dL (7.8-10.44); Carbon Dioxide 20 mmol/L (22-29); Chloride 106 mmol/L (98-107); Estimated GFR 104; Glucose 138 mg/dL (70-105); Potassium 3.6 mmol/L (3.5-5.1); Sodium 136 mmol/L (136-145)
[2022-12-28] MEDS: Piperacillin/Tazobactam 3.375 GM in Sodium Chloride 0.9% 100 ML IVPB SCH ×3 (04:34→22:10)
[2022-12-28] MEDS: Morphine 4 MG/ML VIAL SLOW IVP PRN ×3 (06:13→22:22)
[2022-12-28] MEDS: Morphine 2 MG/ML VIAL SLOW IVP PRN (10:28)
[2022-12-28] MEDS: Lantus 1000 UNITS/10 ML VIAL SC SCH ×2 (10:30→22:23)
[2022-12-28] MEDS: Aspirin 81 mg Enteric Coated Tablet PO SCH (10:30)
[2022-12-28] MEDS: traMADol HCl 50 MG TAB PO PRN ×2 (10:49→17:55)
[2022-12-28] MEDS: Sodium Chloride 0.9% 1,000 ML IV SCH (15:10)
[2022-12-28] MEDS: HumaLOG 300 UNITS/3 ML VIAL SC PRN (17:57)
[2022-12-28] MEDS: Atorvastatin Calcium 10 MG TAB PO SCH (22:14)
[2022-12-29] MEDS: Sodium Chloride 0.9% 1,000 ML IV SCH ×2 (01:35→16:05)
[2022-12-29] MEDS: Piperacillin/Tazobactam 3.375 GM in Sodium Chloride 0.9% 100 ML IVPB SCH (04:54)
[2022-12-29 06:17] LABS: Anion Gap 13 mmol/L (10-20); BUN (Urea Nitrogen) 7 mg/dL (8.4-25.7); Calc. Creatinine Clearance 163 mL/min (70-130); Calcium 7.8 mg/dL (7.8-10.44); Carbon Dioxide 19 mmol/L (22-29); Chloride 107 mmol/L (98-107); Estimated GFR 107; Glucose 94 mg/dL (70-105); Potassium 3.8 mmol/L (3.5-5.1); Sodium 135 mmol/L (136-145)
[2022-12-29 06:36] LABS: #Basophils 0.1 10x3/uL (0.0-0.2); #Eosinphils 0.2 10x3/uL (0.0-0.5); #Monocytes 1.4 10x3/uL (0.0-1.1); #Neutrophils 11.4 10x3/uL (1.5-8.4); %Basophils 0.3 % (0.0-2.0); %Eosinophils 1.7 % (0.0-6.0); %Monocytes 9.7 % (0.0-10.0); Hemoglobin 6.9 g/dL (13.5-17.5); Mean Corpuscular HGB CONC 29.6 g/dL (32.0-36.0); Mean Corpuscular Hemoglobin 23.5 pg (27.0-33.0); Mean Corpuscular Volume 79.5 fl (81.2-95.1); Mean Platelet Volume 11.3 fl (7.4-10.4); Platelet Count 448 10x3/uL (150-450); RBC Distribution Width 19.4 % (11.5-14.5); Red Blood Cell (RBC) Count 2.93 10x6/uL (4.32-5.72); White Blood Cell (WBC) Count 14.4 10x3/uL (3.5-10.5)
[2022-12-29] MEDS: traMADol HCl 50 MG TAB PO PRN (08:15)
[2022-12-29] MEDS: Aspirin 81 mg Enteric Coated Tablet PO SCH (08:17)
[2022-12-29] MEDS: Lantus 1000 UNITS/10 ML VIAL SC SCH ×2 (08:17→22:00)
[2022-12-29] MEDS: Morphine 4 MG/ML VIAL SLOW IVP PRN ×3 (09:15→21:54)
[2022-12-29] MEDS: HumaLOG 300 UNITS/3 ML VIAL SC PRN (12:16)
[2022-12-29] MEDS: VANCOMYCIN 1.25 GM/250 ML BAG 1.25 GM in Premix Bag 1 BAG IVPB SCH ×2 (12:16→23:56)
[2022-12-29 18:55] LABS: #Eosinphils 0.3 10x3/uL (0.0-0.5); #Monocytes 1.4 10x3/uL (0.0-1.1); #Neutrophils 12.1 10x3/uL (1.5-8.4); %Basophils 0.3 % (0.0-2.0); %Eosinophils 1.7 % (0.0-6.0); %Lymphocytes 8.2 % (18.0-47.0); %Neutrophils 79.7 % (40.0-75.0); Hemoglobin 8.1 g/dL (13.5-17.5); Mean Corpuscular HGB CONC 30.1 g/dL (32.0-36.0); Mean Corpuscular Hemoglobin 24.3 pg (27.0-33.0); Mean Corpuscular Volume 80.5 fl (81.2-95.1); Mean Platelet Volume 11.4 fl (7.4-10.4); Platelet Count 462 10x3/uL (150-450); RBC Distribution Width 19.5 % (11.5-14.5); Red Blood Cell (RBC) Count 3.34 10x6/uL (4.32-5.72); White Blood Cell (WBC) Count 15.1 10x3/uL (3.5-10.5)
[2022-12-29] MEDS: Atorvastatin Calcium 10 MG TAB PO SCH (21:40)
[2022-12-30 00:03] LABS: Vancomycin, Trough 13.4 ug/mL
[2022-12-30] MEDS: Morphine 4 MG/ML VIAL SLOW IVP PRN ×3 (03:43→19:40)
[2022-12-30 05:04] LABS: #Basophils 0.1 10x3/uL (0.0-0.2); #Eosinphils 0.3 10x3/uL (0.0-0.5); #Monocytes 1.3 10x3/uL (0.0-1.1); #Neutrophils 12.2 10x3/uL (1.5-8.4); %Basophils 0.3 % (0.0-2.0); %Eosinophils 2.1 % (0.0-6.0); %Lymphocytes 6.7 % (18.0-47.0); %Monocytes 8.4 % (0.0-10.0); %Neutrophils 81.4 % (40.0-75.0); Hemoglobin 7.6 g/dL (13.5-17.5); Mean Corpuscular Hemoglobin 24.1 pg (27.0-33.0); Mean Corpuscular Volume 80.3 fl (81.2-95.1); Mean Platelet Volume 11.3 fl (7.4-10.4); Platelet Count 454 10x3/uL (150-450); RBC Distribution Width 19.6 % (11.5-14.5); Red Blood Cell (RBC) Count 3.15 10x6/uL (4.32-5.72)
[2022-12-30 05:10] LABS: Anion Gap 14 mmol/L (10-20); BUN (Urea Nitrogen) 7 mg/dL (8.4-25.7); Calc. Creatinine Clearance 162 mL/min (70-130); Carbon Dioxide 20 mmol/L (22-29); Chloride 108 mmol/L (98-107); Estimated GFR 107; Glucose 142 mg/dL (70-105); Potassium 3.8 mmol/L (3.5-5.1); Sodium 138 mmol/L (136-145)
[2022-12-30] MEDS: Sodium Chloride 0.9% 1,000 ML IV SCH ×2 (08:25→16:25)
[2022-12-30] MEDS: Lantus 1000 UNITS/10 ML VIAL SC SCH ×2 (08:25→20:51)
[2022-12-30] MEDS: Aspirin 81 mg Enteric Coated Tablet PO SCH (08:26)
[2022-12-30] MEDS: VANCOMYCIN 1.25 GM/250 ML BAG 1.25 GM in Premix Bag 1 BAG IVPB SCH (10:50)
[2022-12-30] MEDS: HumaLOG 300 UNITS/3 ML VIAL SC PRN (16:25)
[2022-12-30] MEDS: Atorvastatin Calcium 10 MG TAB PO SCH (20:51)
[2022-12-31] MEDS: VANCOMYCIN 1.25 GM/250 ML BAG 1.25 GM in Premix Bag 1 BAG IVPB SCH ×3 (00:56→23:15)
[2022-12-31 06:56] LABS: Anion Gap 13 mmol/L (10-20); BUN (Urea Nitrogen) 9 mg/dL (8.4-25.7); Calc. Creatinine Clearance 158 mL/min (70-130); Calcium 8.1 mg/dL (7.8-10.44); Carbon Dioxide 19 mmol/L (22-29); Chloride 107 mmol/L (98-107); Estimated GFR 106; Glucose 203 mg/dL (70-105); Potassium 3.8 mmol/L (3.5-5.1); Sodium 135 mmol/L (136-145)
[2022-12-31 06:57] LABS: #Basophils 0.1 10x3/uL (0.0-0.2); #Eosinphils 0.2 10x3/uL (0.0-0.5); #Monocytes 1.1 10x3/uL (0.0-1.1); #Neutrophils 12.2 10x3/uL (1.5-8.4); %Basophils 0.3 % (0.0-2.0); %Lymphocytes 7.3 % (18.0-47.0); %Monocytes 7.7 % (0.0-10.0); Hemoglobin 8.4 g/dL (13.5-17.5); Mean Corpuscular HGB CONC 30.5 g/dL (32.0-36.0); Mean Corpuscular Volume 81.8 fl (81.2-95.1); Mean Platelet Volume 10.8 fl (7.4-10.4); Platelet Count 499 10x3/uL (150-450); RBC Distribution Width 19.2 % (11.5-14.5); Red Blood Cell (RBC) Count 3.36 10x6/uL (4.32-5.72); White Blood Cell (WBC) Count 14.7 10x3/uL (3.5-10.5)
[2022-12-31] MEDS: Aspirin 81 mg Enteric Coated Tablet PO SCH (08:28)
[2022-12-31] MEDS: traMADol HCl 50 MG TAB PO PRN ×2 (08:29→20:35)
[2022-12-31] MEDS: HumaLOG 300 UNITS/3 ML VIAL SC PRN ×2 (08:30→16:53)
[2022-12-31] MEDS: Lantus 1000 UNITS/10 ML VIAL SC SCH ×2 (08:31→20:36)
[2022-12-31] MEDS: Morphine 4 MG/ML VIAL SLOW IVP PRN (14:49)
[2022-12-31] MEDS: Sodium Chloride 0.9% 1,000 ML IV SCH (15:30)
[2022-12-31 17:04] LABS: Magnesium 1.6 mg/dL (1.6-2.6)
[2022-12-31] MEDS ORDERED: Magnesium 2 GM/50 ML(in water) 2 GM in Premix Bag 1 BAG IVPB SCH (17:30)
[2022-12-31] MEDS: Atorvastatin Calcium 10 MG TAB PO SCH (20:36)
[2023-01-01 04:39] LABS: #Basophils 0.1 10x3/uL (0.0-0.2); #Eosinphils 0.2 10x3/uL (0.0-0.5); #Monocytes 1.1 10x3/uL (0.0-1.1); #Neutrophils 12.1 10x3/uL (1.5-8.4); %Basophils 0.4 % (0.0-2.0); %Eosinophils 1.2 % (0.0-6.0); %Lymphocytes 8.1 % (18.0-47.0); %Monocytes 7.3 % (0.0-10.0); %Neutrophils 82.5 % (40.0-75.0); Mean Corpuscular HGB CONC 31.6 g/dL (32.0-36.0); Mean Corpuscular Hemoglobin 25.4 pg (27.0-33.0); Mean Corpuscular Volume 80.3 fl (81.2-95.1); Mean Platelet Volume 11.2 fl (7.4-10.4); Platelet Count 529 10x3/uL (150-450); RBC Distribution Width 19.2 % (11.5-14.5); Red Blood Cell (RBC) Count 3.55 10x6/uL (4.32-5.72); White Blood Cell (WBC) Count 14.6 10x3/uL (3.5-10.5)
[2023-01-01 04:57] LABS: Anion Gap 13 mmol/L (10-20); BUN (Urea Nitrogen) 9 mg/dL (8.4-25.7); Calc. Creatinine Clearance 150 mL/min (70-130); Calcium 8.1 mg/dL (7.8-10.44); Carbon Dioxide 20 mmol/L (22-29); Chloride 108 mmol/L (98-107); Estimated GFR 104; Glucose 153 mg/dL (70-105); Magnesium 1.8 mg/dL (1.6-2.6); Potassium 4.2 mmol/L (3.5-5.1); Sodium 137 mmol/L (136-145)
[2023-01-01] MEDS ORDERED: Magnesium 2 GM/50 ML(in water) 2 GM in Premix Bag 1 BAG IVPB SCH (08:00)
[2023-01-01] MEDS: Morphine 4 MG/ML VIAL SLOW IVP PRN ×2 (08:48→16:18)
[2023-01-01] MEDS: Aspirin 81 mg Enteric Coated Tablet PO SCH (08:48)
[2023-01-01] MEDS: Lantus 1000 UNITS/10 ML VIAL SC SCH ×2 (08:49→20:45)
[2023-01-01 10:44] LABS: Vancomycin, Trough 13.2 ug/mL
[2023-01-01] MEDS: VANCOMYCIN 1.25 GM/250 ML BAG 1.25 GM in Premix Bag 1 BAG IVPB SCH ×2 (11:18→23:18)
[2023-01-01] MEDS: HumaLOG 300 UNITS/3 ML VIAL SC PRN (13:14)
[2023-01-01] MEDS: Sodium Chloride 0.9% 1,000 ML IV SCH (15:17)
[2023-01-01] MEDS: Atorvastatin Calcium 10 MG TAB PO SCH (20:45)
[2023-01-02] MEDS: Morphine 4 MG/ML VIAL SLOW IVP PRN (00:15)
[2023-01-02] MEDS: Acetaminophen 325 MG TAB PO PRN ×3 (00:22→20:43)
[2023-01-02 05:32] LABS: #Basophils 0.1 10x3/uL (0.0-0.2); #Eosinphils 0.2 10x3/uL (0.0-0.5); #Neutrophils 9.8 10x3/uL (1.5-8.4); %Basophils 0.5 % (0.0-2.0); %Eosinophils 1.6 % (0.0-6.0); %Lymphocytes 8.8 % (18.0-47.0); %Monocytes 7.9 % (0.0-10.0); %Neutrophils 80.5 % (40.0-75.0); Hemoglobin 9.3 g/dL (13.5-17.5); Mean Corpuscular Volume 83.3 fl (81.2-95.1); Mean Platelet Volume 10.1 fl (7.4-10.4); Platelet Count 538 10x3/uL (150-450); RBC Distribution Width 19.7 % (11.5-14.5); Red Blood Cell (RBC) Count 3.72 10x6/uL (4.32-5.72); White Blood Cell (WBC) Count 12.2 10x3/uL (3.5-10.5)
[2023-01-02 05:40] LABS: Anion Gap 14 mmol/L (10-20); BUN (Urea Nitrogen) 8 mg/dL (8.4-25.7); Calc. Creatinine Clearance 155 mL/min (70-130); Calcium 8.5 mg/dL (7.8-10.44); Carbon Dioxide 20 mmol/L (22-29); Chloride 109 mmol/L (98-107); Estimated GFR 106; Glucose 123 mg/dL (70-105); Sodium 139 mmol/L (136-145)
[2023-01-02] MEDS: Aspirin 81 mg Enteric Coated Tablet PO SCH (08:46)
[2023-01-02] MEDS: Lantus 1000 UNITS/10 ML VIAL SC SCH (08:47)
[2023-01-02] MEDS ORDERED: VANCOMYCIN 1.25 GM/250 ML BAG ONE (11:25)
[2023-01-02] MEDS: VANCOMYCIN 1.25 GM/250 ML BAG 1.25 GM in Premix Bag 1 BAG IVPB SCH ×2 (11:30→23:30)
[2023-01-02] MEDS ORDERED: Lidocaine 1% PF 5 ML VIAL ONE (12:07)
[2023-01-02] MEDS ORDERED: Sodium Bicarbonate 2.5 MEQ/5 ML VIAL ONE (12:07)
[2023-01-02] MEDS ORDERED: Lidocaine 1% (PF) 30 ML VIAL ONE (13:53)
[2023-01-02] MEDS: Sodium Chloride 0.9% 1,000 ML IV SCH (15:53)
[2023-01-02] MEDS: Famotidine 20 MG TAB PO SCH (20:35)
[2023-01-02] MEDS: Atorvastatin Calcium 10 MG TAB PO SCH (20:35)
[2023-01-02] MEDS: Metoprolol Tartrate 25 MG TAB PO SCH (20:44)
[2023-01-02] MEDS: HumaLOG 300 UNITS/3 ML VIAL SC PRN (20:45)
[2023-01-02] MEDS ORDERED: Apixaban 5 MG TAB PO SCH (21:00)
[2023-01-02] MEDS: HumaLOG 300 UNITS/3 ML VIAL SC SCH (22:07)
[2023-01-03 05:02] LABS: #Basophils 0.1 10x3/uL (0.0-0.2); #Eosinphils 0.2 10x3/uL (0.0-0.5); #Monocytes 0.9 10x3/uL (0.0-1.1); #Neutrophils 9.3 10x3/uL (1.5-8.4); %Basophils 0.5 % (0.0-2.0); %Eosinophils 1.4 % (0.0-6.0); %Lymphocytes 9.1 % (18.0-47.0); %Monocytes 7.6 % (0.0-10.0); Hemoglobin 9.1 g/dL (13.5-17.5); Mean Corpuscular HGB CONC 30.8 g/dL (32.0-36.0); Mean Corpuscular Hemoglobin 25.3 pg (27.0-33.0); Mean Corpuscular Volume 81.9 fl (81.2-95.1); Mean Platelet Volume 10.3 fl (7.4-10.4); Platelet Count 521 10x3/uL (150-450); RBC Distribution Width 19.3 % (11.5-14.5); White Blood Cell (WBC) Count 11.5 10x3/uL (3.5-10.5)
[2023-01-03 05:17] LABS: Anion Gap 13 mmol/L (10-20); BUN (Urea Nitrogen) 7 mg/dL (8.4-25.7); Calc. Creatinine Clearance 162 mL/min (70-130); Calcium 8.5 mg/dL (7.8-10.44); Carbon Dioxide 21 mmol/L (22-29); Chloride 110 mmol/L (98-107); Estimated GFR 109; Glucose 114 mg/dL (70-105); Potassium 3.9 mmol/L (3.5-5.1); Sodium 140 mmol/L (136-145)
[2023-01-03] MEDS: Aspirin 81 mg Enteric Coated Tablet PO SCH (08:11)
[2023-01-03] MEDS: Metoprolol Tartrate 25 MG TAB PO SCH ×2 (08:11→21:30)
[2023-01-03] MEDS: Famotidine 20 MG TAB PO SCH ×2 (08:11→21:29)
[2023-01-03] MEDS: HumaLOG 300 UNITS/3 ML VIAL SC SCH ×3 (08:12→21:34)
[2023-01-03] MEDS: Lantus 1000 UNITS/10 ML VIAL SC SCH (08:13)
[2023-01-03] MEDS: VANCOMYCIN 1.25 GM/250 ML BAG 1.25 GM in Premix Bag 1 BAG IVPB SCH ×2 (11:30→23:29)
[2023-01-03 11:32] VITALS: BMI 25.6
[2023-01-03] MEDS ORDERED: VANCOMYCIN 1.25 GM/250 ML BAG ONE (11:44)
[2023-01-03] MEDS: Sodium Chloride 0.9% 1,000 ML IV SCH (16:09)
[2023-01-03] MEDS: Atorvastatin Calcium 10 MG TAB PO SCH (21:29)
[2023-01-03] MEDS: Apixaban 5 MG TAB PO SCH (21:29)
[2023-01-04 04:48] LABS: #Basophils 0.1 10x3/uL (0.0-0.2); #Eosinphils 0.1 10x3/uL (0.0-0.5); #Monocytes 0.8 10x3/uL (0.0-1.1); #Neutrophils 7.8 10x3/uL (1.5-8.4); %Basophils 0.8 % (0.0-2.0); %Eosinophils 1.2 % (0.0-6.0); %Lymphocytes 11.7 % (18.0-47.0); %Monocytes 8.2 % (0.0-10.0); %Neutrophils 77.7 % (40.0-75.0); Mean Corpuscular HGB CONC 30.5 g/dL (32.0-36.0); Mean Corpuscular Hemoglobin 25.1 pg (27.0-33.0); Mean Corpuscular Volume 82.2 fl (81.2-95.1); Mean Platelet Volume 9.9 fl (7.4-10.4); Platelet Count 494 10x3/uL (150-450); RBC Distribution Width 19.3 % (11.5-14.5); Red Blood Cell (RBC) Count 3.59 10x6/uL (4.32-5.72)
[2023-01-04 05:08] LABS: Anion Gap 14 mmol/L (10-20); BUN (Urea Nitrogen) 8 mg/dL (8.4-25.7); Calc. Creatinine Clearance 153 mL/min (70-130); Calcium 8.5 mg/dL (7.8-10.44); Carbon Dioxide 20 mmol/L (22-29); Chloride 109 mmol/L (98-107); Estimated GFR 107; Glucose 104 mg/dL (70-105); Potassium 3.8 mmol/L (3.5-5.1); Sodium 139 mmol/L (136-145)
[2023-01-04] MEDS: HumaLOG 300 UNITS/3 ML VIAL SC SCH ×3 (09:00→22:32)
[2023-01-04] MEDS: Morphine 4 MG/ML VIAL SLOW IVP PRN (09:19)
[2023-01-04] MEDS: Famotidine 20 MG TAB PO SCH ×2 (09:19→22:32)
[2023-01-04] MEDS: Aspirin 81 mg Enteric Coated Tablet PO SCH (09:19)
[2023-01-04] MEDS: Apixaban 5 MG TAB PO SCH ×2 (09:20→22:32)
[2023-01-04] MEDS: Metoprolol Tartrate 25 MG TAB PO SCH ×2 (09:20→22:32)
[2023-01-04] MEDS: Sodium Chloride 0.9% 1,000 ML IV SCH (09:20)
[2023-01-04] MEDS: VANCOMYCIN 1.25 GM/250 ML BAG 1.25 GM in Premix Bag 1 BAG IVPB SCH ×2 (13:00→22:37)
[2023-01-04] MEDS: Lantus 1000 UNITS/10 ML VIAL SC SCH (13:00)
[2023-01-04] MEDS: Atorvastatin Calcium 10 MG TAB PO SCH (22:32)
[2023-01-05 04:28] LABS: #Basophils 0.1 10x3/uL (0.0-0.2); #Eosinphils 0.1 10x3/uL (0.0-0.5); #Neutrophils 10.3 10x3/uL (1.5-8.4); %Basophils 0.7 % (0.0-2.0); %Lymphocytes 7.6 % (18.0-47.0); %Monocytes 7.9 % (0.0-10.0); %Neutrophils 82.3 % (40.0-75.0); Hemoglobin 8.9 g/dL (13.5-17.5); Mean Corpuscular HGB CONC 30.3 g/dL (32.0-36.0); Mean Corpuscular Hemoglobin 24.8 pg (27.0-33.0); Mean Corpuscular Volume 81.9 fl (81.2-95.1); Mean Platelet Volume 10.7 fl (7.4-10.4); Platelet Count 511 10x3/uL (150-450); Red Blood Cell (RBC) Count 3.59 10x6/uL (4.32-5.72); White Blood Cell (WBC) Count 12.6 10x3/uL (3.5-10.5)
[2023-01-05 04:33] LABS: Anion Gap 13 mmol/L (10-20); BUN (Urea Nitrogen) 10 mg/dL (8.4-25.7); Calc. Creatinine Clearance 143 mL/min (70-130); Calcium 8.4 mg/dL (7.8-10.44); Carbon Dioxide 21 mmol/L (22-29); Chloride 108 mmol/L (98-107); Estimated GFR 105; Glucose 76 mg/dL (70-105); Potassium 3.8 mmol/L (3.5-5.1); Sodium 138 mmol/L (136-145)
[2023-01-05] MEDS: Morphine 4 MG/ML VIAL SLOW IVP PRN ×2 (09:21→20:58)
[2023-01-05] MEDS: Aspirin 81 mg Enteric Coated Tablet PO SCH (09:21)
[2023-01-05] MEDS: Apixaban 5 MG TAB PO SCH (09:21)
[2023-01-05] MEDS: Famotidine 20 MG TAB PO SCH ×2 (09:21→21:04)
[2023-01-05] MEDS: Metoprolol Tartrate 25 MG TAB PO SCH ×2 (09:21→21:04)
[2023-01-05] MEDS: Lantus 1000 UNITS/10 ML VIAL SC SCH (09:23)
[2023-01-05] MEDS: HumaLOG 300 UNITS/3 ML VIAL SC SCH ×3 (09:23→22:41)
[2023-01-05] MEDS: VANCOMYCIN 1.25 GM/250 ML BAG 1.25 GM in Premix Bag 1 BAG IVPB SCH ×2 (12:00→23:59)
[2023-01-05] MEDS ORDERED: EPINEPHrine 1 MG/ML AMP ONE (14:28)
[2023-01-05] MEDS ORDERED: Bupivacaine HCl 0.5%/Epinephrine 1:200,000/PF 30 ml Vial ONE (14:29)
[2023-01-05] MEDS ORDERED: Tranexamic Acid 1,000 MG/10 ML VIAL ONE (14:29)
[2023-01-05] MEDS ORDERED: Bupivacaine PF 0.5% 30 ML VIAL ONE (14:29)
[2023-01-05] MEDS ORDERED: ePHEDrine Sulfate 50 MG/10 ML VIAL ONE (15:22)
[2023-01-05] MEDS ORDERED: Rocuronium Bromide 10 MG/ML (10ML VIAL) ONE (15:22)
[2023-01-05] MEDS ORDERED: Succinylcholine 200 MG/10 ml SYRINGE FS ONE (15:22)
[2023-01-05] MEDS ORDERED: Lidocaine 1% PF 5 ML VIAL ONE (15:22)
[2023-01-05] MEDS ORDERED: PROPOFOL 20 ML ONE (15:22)
[2023-01-05] MEDS ORDERED: Fentanyl 100 MCG/2 ML VIAL ONE (15:22)
[2023-01-05] MEDS ORDERED: Midazolam HCl 2 mg/2 ml Vial ONE (15:56)
[2023-01-05] MEDS ORDERED: HYDROmorphone 0.5 MG/0.5 ML SYRINGE ONE (15:56)
[2023-01-05] MEDS: Sodium Chloride 0.9% 1,000 ML IV SCH (16:30)
[2023-01-05] MEDS ORDERED: PHENYLEPHRINE-NS 100 MCG/ML 10 ML SYRINGE ONE (17:04)
[2023-01-05] MEDS ORDERED: Glycopyrrolate 0.2 MG/ML 5 ML SYRINGE ONE (17:14)
[2023-01-05] MEDS ORDERED: Ondansetron PF 4 MG/2 ML Vial ONE (17:14)
[2023-01-05] MEDS: Atorvastatin Calcium 10 MG TAB PO SCH (21:04)
[2023-01-05] MEDS: Heparin 5,000 UNITS/ML VIAL SC SCH (21:07)
[2023-01-06] MEDS: Morphine 2 MG/ML VIAL SLOW IVP PRN ×2 (00:17→22:41)
[2023-01-06 04:51] LABS: #Basophils 0.1 10x3/uL (0.0-0.2); #Eosinphils 0.1 10x3/uL (0.0-0.5); #Monocytes 0.8 10x3/uL (0.0-1.1); #Neutrophils 6.8 10x3/uL (1.5-8.4); %Eosinophils 1.4 % (0.0-6.0); %Lymphocytes 12.9 % (18.0-47.0); %Monocytes 8.8 % (0.0-10.0); %Neutrophils 75.5 % (40.0-75.0); Hemoglobin 9.1 g/dL (13.5-17.5); Mean Corpuscular HGB CONC 29.6 g/dL (32.0-36.0); Mean Corpuscular Hemoglobin 24.7 pg (27.0-33.0); Mean Corpuscular Volume 83.4 fl (81.2-95.1); Mean Platelet Volume 10.4 fl (7.4-10.4); Platelet Count 476 10x3/uL (150-450); RBC Distribution Width 19.1 % (11.5-14.5); Red Blood Cell (RBC) Count 3.68 10x6/uL (4.32-5.72)
[2023-01-06 04:58] LABS: Anion Gap 12 mmol/L (10-20); BUN (Urea Nitrogen) 11 mg/dL (8.4-25.7); Calc. Creatinine Clearance 133 mL/min (70-130); Calcium 8.6 mg/dL (7.8-10.44); Carbon Dioxide 23 mmol/L (22-29); Chloride 108 mmol/L (98-107); Estimated GFR 104; Glucose 93 mg/dL (70-105); Potassium 4.1 mmol/L (3.5-5.1); Sodium 139 mmol/L (136-145)
[2023-01-06] MEDS: Morphine 4 MG/ML VIAL SLOW IVP PRN ×3 (05:41→20:25)
[2023-01-06] MEDS: HumaLOG 300 UNITS/3 ML VIAL SC SCH ×4 (09:33→22:15)
[2023-01-06] MEDS: Metoprolol Tartrate 25 MG TAB PO SCH ×2 (09:36→20:26)
[2023-01-06] MEDS: Lantus 1000 UNITS/10 ML VIAL SC SCH (09:38)
[2023-01-06] MEDS: Aspirin 81 mg Enteric Coated Tablet PO SCH (09:42)
[2023-01-06] MEDS: Famotidine 20 MG TAB PO SCH ×2 (09:42→20:26)
[2023-01-06] MEDS: Sodium Chloride 0.9% 1,000 ML IV SCH (09:46)
[2023-01-06] MEDS: Heparin 5,000 UNITS/ML VIAL SC SCH ×3 (09:48→20:24)
[2023-01-06 11:21] LABS: Vancomycin, Trough 16.3 ug/mL
[2023-01-06] MEDS: VANCOMYCIN 1.25 GM/250 ML BAG 1.25 GM in Premix Bag 1 BAG IVPB SCH ×2 (12:05→22:35)
[2023-01-06] MEDS: Atorvastatin Calcium 10 MG TAB PO SCH (20:26)
[2023-01-07 04:40] LABS: #Basophils 0.1 10x3/uL (0.0-0.2); #Eosinphils 0.2 10x3/uL (0.0-0.5); #Monocytes 0.8 10x3/uL (0.0-1.1); #Neutrophils 5.4 10x3/uL (1.5-8.4); %Eosinophils 2.6 % (0.0-6.0); %Lymphocytes 16.9 % (18.0-47.0); %Monocytes 9.7 % (0.0-10.0); %Neutrophils 69.4 % (40.0-75.0); Mean Corpuscular HGB CONC 30.3 g/dL (32.0-36.0); Mean Corpuscular Hemoglobin 25.1 pg (27.0-33.0); Mean Platelet Volume 10.6 fl (7.4-10.4); Platelet Count 445 10x3/uL (150-450); RBC Distribution Width 18.7 % (11.5-14.5); Red Blood Cell (RBC) Count 3.58 10x6/uL (4.32-5.72); White Blood Cell (WBC) Count 7.8 10x3/uL (3.5-10.5)
[2023-01-07 04:44] LABS: Anion Gap 12 mmol/L (10-20); BUN (Urea Nitrogen) 8 mg/dL (8.4-25.7); Calc. Creatinine Clearance 148 mL/min (70-130); Calcium 8.6 mg/dL (7.8-10.44); Carbon Dioxide 23 mmol/L (22-29); Chloride 107 mmol/L (98-107); Estimated GFR 107; Glucose 106 mg/dL (70-105); Potassium 3.9 mmol/L (3.5-5.1); Sodium 138 mmol/L (136-145)
[2023-01-07] MEDS: Morphine 4 MG/ML VIAL SLOW IVP PRN ×2 (05:53→11:36)
[2023-01-07] MEDS: Famotidine 20 MG TAB PO SCH ×2 (08:41→20:28)
[2023-01-07] MEDS: Aspirin 81 mg Enteric Coated Tablet PO SCH (08:41)
[2023-01-07] MEDS: Metoprolol Tartrate 25 MG TAB PO SCH ×2 (08:42→20:28)
[2023-01-07] MEDS: Morphine 2 MG/ML VIAL SLOW IVP PRN ×4 (08:47→23:17)
[2023-01-07] MEDS: Lantus 1000 UNITS/10 ML VIAL SC SCH (08:52)
[2023-01-07] MEDS: Heparin 5,000 UNITS/ML VIAL SC SCH ×3 (08:53→20:28)
[2023-01-07] MEDS: HumaLOG 300 UNITS/3 ML VIAL SC SCH ×3 (08:58→20:46)
[2023-01-07] MEDS: VANCOMYCIN 1.25 GM/250 ML BAG 1.25 GM in Premix Bag 1 BAG IVPB SCH ×2 (11:19→23:24)
[2023-01-07] MEDS ORDERED: Acetaminophen 500 MG TAB PO PRN (12:34)
[2023-01-07] MEDS ORDERED: oxyCODONE 5 MG TAB PO PRN (12:34)
[2023-01-07] MEDS: Sodium Chloride 0.9% 1,000 ML IV SCH (15:08)
[2023-01-07] MEDS: Atorvastatin Calcium 10 MG TAB PO SCH (20:28)
[2023-01-08 05:06] LABS: #Basophils 0.1 10x3/uL (0.0-0.2); #Eosinphils 0.2 10x3/uL (0.0-0.5); #Monocytes 0.9 10x3/uL (0.0-1.1); #Neutrophils 7.8 10x3/uL (1.5-8.4); %Basophils 0.9 % (0.0-2.0); %Lymphocytes 13.6 % (18.0-47.0); %Monocytes 8.3 % (0.0-10.0); %Neutrophils 74.8 % (40.0-75.0); Hemoglobin 9.8 g/dL (13.5-17.5); Mean Corpuscular HGB CONC 30.2 g/dL (32.0-36.0); Mean Corpuscular Volume 82.7 fl (81.2-95.1); Mean Platelet Volume 10.9 fl (7.4-10.4); Platelet Count 462 10x3/uL (150-450); RBC Distribution Width 18.6 % (11.5-14.5); Red Blood Cell (RBC) Count 3.92 10x6/uL (4.32-5.72); White Blood Cell (WBC) Count 10.5 10x3/uL (3.5-10.5)
[2023-01-08 05:17] LABS: Anion Gap 13 mmol/L (10-20); BUN (Urea Nitrogen) 9 mg/dL (8.4-25.7); Calc. Creatinine Clearance 134 mL/min (70-130); Calcium 8.8 mg/dL (7.8-10.44); Carbon Dioxide 24 mmol/L (22-29); Chloride 106 mmol/L (98-107); Estimated GFR 104; Glucose 91 mg/dL (70-105); Potassium 3.9 mmol/L (3.5-5.1); Sodium 139 mmol/L (136-145)
[2023-01-08] MEDS: HumaLOG 300 UNITS/3 ML VIAL SC SCH ×3 (07:53→20:14)
[2023-01-08] MEDS: Lantus 1000 UNITS/10 ML VIAL SC SCH (07:53)
[2023-01-08] MEDS: Famotidine 20 MG TAB PO SCH ×2 (07:53→20:14)
[2023-01-08] MEDS: Apixaban 5 MG TAB PO SCH ×2 (07:53→20:14)
[2023-01-08] MEDS: Aspirin 81 mg Enteric Coated Tablet PO SCH (07:53)
[2023-01-08] MEDS: Morphine 2 MG/ML VIAL SLOW IVP PRN ×4 (07:53→18:52)
[2023-01-08] MEDS: Metoprolol Tartrate 25 MG TAB PO SCH ×2 (07:53→20:14)
[2023-01-08 10:37] LABS: Vancomycin, Trough 16.3 ug/mL
[2023-01-08] MEDS: VANCOMYCIN 1.25 GM/250 ML BAG 1.25 GM in Premix Bag 1 BAG IVPB SCH ×2 (10:51→23:16)
[2023-01-08] MEDS: HumaLOG 300 UNITS/3 ML VIAL SC PRN (12:38)
[2023-01-08] MEDS: Atorvastatin Calcium 10 MG TAB PO SCH (20:14)
[2023-01-09] MEDS: Morphine 2 MG/ML VIAL SLOW IVP PRN (04:09)
[2023-01-09 05:21] LABS: Anion Gap 15 mmol/L (10-20); BUN (Urea Nitrogen) 11 mg/dL (8.4-25.7); Calc. Creatinine Clearance 145 mL/min (70-130); Calcium 8.9 mg/dL (7.8-10.44); Carbon Dioxide 21 mmol/L (22-29); Chloride 106 mmol/L (98-107); Estimated GFR 106; Glucose 138 mg/dL (70-105); Potassium 3.8 mmol/L (3.5-5.1); Sodium 138 mmol/L (136-145)
[2023-01-09 05:23] LABS: #Basophils 0.1 10x3/uL (0.0-0.2); #Eosinphils 0.1 10x3/uL (0.0-0.5); #Monocytes 0.7 10x3/uL (0.0-1.1); #Neutrophils 8.7 10x3/uL (1.5-8.4); %Basophils 0.6 % (0.0-2.0); %Eosinophils 1.1 % (0.0-6.0); %Lymphocytes 8.5 % (18.0-47.0); %Neutrophils 82.6 % (40.0-75.0); Hemoglobin 9.6 g/dL (13.5-17.5); Mean Corpuscular HGB CONC 29.8 g/dL (32.0-36.0); Mean Corpuscular Hemoglobin 24.4 pg (27.0-33.0); Mean Corpuscular Volume 81.9 fl (81.2-95.1); Mean Platelet Volume 10.8 fl (7.4-10.4); Platelet Count 446 10x3/uL (150-450); RBC Distribution Width 18.5 % (11.5-14.5); Red Blood Cell (RBC) Count 3.93 10x6/uL (4.32-5.72); White Blood Cell (WBC) Count 10.6 10x3/uL (3.5-10.5)
[2023-01-09] MEDS: Apixaban 5 MG TAB PO SCH (07:45)
[2023-01-09] MEDS: Metoprolol Tartrate 25 MG TAB PO SCH (07:45)
[2023-01-09] MEDS: Lantus 1000 UNITS/10 ML VIAL SC SCH (07:45)
[2023-01-09] MEDS: Famotidine 20 MG TAB PO SCH (07:45)
[2023-01-09] MEDS: Aspirin 81 mg Enteric Coated Tablet PO SCH (07:45)
[2023-01-09] MEDS: HumaLOG 300 UNITS/3 ML VIAL SC SCH ×2 (07:46→13:55)
[2023-01-09] MEDS: VANCOMYCIN 1.25 GM/250 ML BAG 1.25 GM in Premix Bag 1 BAG IVPB SCH (13:55)
[2023-01-09 13:59] VITALS: TEMP 98.2
[2023-01-09 14:33] VITALS: BP 135/82
== END 2023-01-09 15:33 | DRG 853 ==
LOC: CSHICU 03:06 → CSHTELE 12-23 01:44
PROVIDERS: ADMIT Family Medicine; ATTEND Hospitalist
PROC: 3E033XZ Introduction of Vasopressor into Peripheral Vein, Percutaneous Approach (ICD-10-PCS; 2022-12-20)
PROC: 3E03329 Introduction of Other Anti-infective into Peripheral Vein, Percutaneous Approach (ICD-10-PCS; 2022-12-20)
PROC: 02HV33Z Insertion of Infusion Device into Superior Vena Cava, Percutaneous Approach (ICD-10-PCS; 2022-12-22)
PROC: B548ZZA Ultrasonography of Superior Vena Cava, Guidance (ICD-10-PCS; 2022-12-22)
PROC: 0Y6J0Z3 Detachment at Left Lower Leg, Low, Open Approach (ICD-10-PCS; principal; 2022-12-26)
PROC: 02HV33Z Insertion of Infusion Device into Superior Vena Cava, Percutaneous Approach (ICD-10-PCS; 2023-01-02)
PROC: B548ZZA Ultrasonography of Superior Vena Cava, Guidance (ICD-10-PCS; 2023-01-02)
PROC: B5181ZA Fluoroscopy of Superior Vena Cava using Low Osmolar Contrast, Guidance (ICD-10-PCS; 2023-01-02)
PROC: 0R9J3ZX Drainage of Right Shoulder Joint, Percutaneous Approach, Diagnostic (ICD-10-PCS; 2023-01-02)
PROC: 0R9J4ZZ Drainage of Right Shoulder Joint, Percutaneous Endoscopic Approach (ICD-10-PCS; 2023-01-05)
DX: A41.02 Sepsis due to Methicillin resistant Staphylococcus aureus (principal); E11.10 Type 2 diabetes mellitus with ketoacidosis without coma; G92.8 Other toxic encephalopathy; R65.21 Severe sepsis with septic shock; I48.3 Typical atrial flutter; M86.8X7 Other osteomyelitis, ankle and foot; M00.811 Arthritis due to other bacteria, right shoulder; E87.0 Hyperosmolality and hypernatremia; I50.42 Chronic combined systolic (congestive) and diastolic (congestive) heart failure; I82.621 Acute embolism and thrombosis of deep veins of right upper extremity; E87.5 Hyperkalemia; E11.51 Type 2 diabetes mellitus with diabetic peripheral angiopathy without gangrene; E11.69 Type 2 diabetes mellitus with other specified complication; E11.621 Type 2 diabetes mellitus with foot ulcer; L97.529 Non-pressure chronic ulcer of other part of left foot with unspecified severity; D63.8 Anemia in other chronic diseases classified elsewhere; F17.210 Nicotine dependence, cigarettes, uncomplicated; R53.81 Other malaise; E87.6 Hypokalemia; I11.0 Hypertensive heart disease with heart failure; Z89.511 Acquired absence of right leg below knee; Z89.432 Acquired absence of left foot; Z79.82 Long term (current) use of aspirin; Z79.899 Other long term (current) drug therapy; Z79.4 Long term (current) use of insulin; Z79.84 Long term (current) use of oral hypoglycemic drugs; Z82.3 Family history of stroke; Z83.3 Family history of diabetes mellitus; I25.5 Ischemic cardiomyopathy
CPT/HCPCS: 20610; 36415; 36416; 36430; 36569; 71045; 77002; 80048; 80202; 80306; 81001; 82010; 82728; 83540; 83550; 83605; 83735; 84100; 84484; 85025; 86850; 86900; 86901; 87040; 87070; 87077; 87149; 87186; 87205; 87811; 88112; 88305; 88307; 93005; 93010; 93306; 94760; 94762; 97139; A4217; C1751; C9113; J0171; J1100; J1170; J1644; J1650; J1815; J2001; J2250; J2270; J2272; J2405; J2543; J2550; J2704; J3010; J3370; J3475; J3480; J3490; J7042; J7050; J7070; P9016; S0020; S0028; U0002

== ENCOUNTER 2024-04-02 13:00 | Outpatient (CLI) | payer OTHER | END 2024-04-02 13:01 | disposition home or self-care (01) | LOC: CSHWCC 13:00 | PROVIDERS: ATTEND Nurse Practitioner Family | DX: E11.621 Type 2 diabetes mellitus with foot ulcer (principal); L98.491 Non-pressure chronic ulcer of skin of other sites limited to breakdown of skin; M86.141 Other acute osteomyelitis, right hand; M86.142 Other acute osteomyelitis, left hand | CPT/HCPCS: 97597; 99214; G0463 ==

== ENCOUNTER 2024-04-09 14:53 | Outpatient (CLI) | payer OTHER | END 2024-04-09 14:54 | disposition home or self-care (01) | LOC: CSHWCC 14:53 | PROVIDERS: ATTEND Nurse Practitioner Family | DX: E11.622 Type 2 diabetes mellitus with other skin ulcer (principal); L98.491 Non-pressure chronic ulcer of skin of other sites limited to breakdown of skin; M86.141 Other acute osteomyelitis, right hand; M86.142 Other acute osteomyelitis, left hand ==